=== PATIENT | male | born 1985 | race Caucasian/White ===

== ENCOUNTER → 2017-09-07 | Outpatient (CLI) | payer OTHER ==
[~2017-09-07] MED LIST: PROAIR HFA0.09 MG/AC IH
== END ==
LOC: COL.RAD 14:56
DX: R19.4 Change in bowel habit (principal); R14.0 Abdominal distension (gaseous); R11.2 Nausea with vomiting, unspecified
CPT/HCPCS: Q9967

== ENCOUNTER → 2017-09-23 | Outpatient (CLI) | payer OTHER | LOC: COL.RAD | DX: R14.0 Abdominal distension (gaseous) (principal) | CPT/HCPCS: A9541 ==